=== PATIENT | male | born 1945 | race Hispanic/Latino ===

== ENCOUNTER → 2022-11-17 07:35 | Outpatient (CLI) | payer OTHER, SELFPAY ==
[2022-11-17 09:38] LABS: BUN Creatinine Ratio 23.3 (6-22); Blood Urea Nitrogen 20 mg/dL (9-20); Calcium 8.7 mg/dL (8.4-10.2); Carbon Dioxide 30 mmol/L (22-32); Chloride 105 mmol/L (98-107); Estimated Glomerular Filt Rate > 60 mL/min (>60); Glucose 100 mg/dL (80-110); HEMOLYSIS < 15 (0-50); Sodium 141 mmol/L (137-145)
[2022-11-17 09:47] LABS: Add Manual Diff / Slide Review NO; Basophils Absolute Auto 0 /uL (0-100); Basophils Percent Auto 0.3 % (0-2); Eosinophils Absolute Auto 200 /uL (0-450); Eosinophils Percent Auto 2.6 % (2-4); Hematocrit 41.7 % (41-53); Hemoglobin 14.5 g/dL (13.5-17.5); Lymphocytes Absolute Auto 1600 /uL (1100-4500); Mean Corpuscular HGB Conc 34.8 % (30-36); Mean Corpuscular Hemoglobin 31.5 PG (26-34); Mean Corpuscular Volume 90.7 fL (80-100); Monocytes Absolute Auto 600 /uL (0-900); Monocytes Percent Auto 10.5 % (3-14); Neutrophils Absolute Auto 3700 /uL (1500-7000); Neutrophils Percent Auto 60.6 % (50-75); Platelet Count 163 X10^3/uL (150-400); Red Blood Cell Count 4.59 X10^6/uL (4.5-5.9); Red Cell Distribution Width 13.7 % (11.6-14.8); White Blood Cell Count 6.1 X10^3/uL (4.5-11.0)
[2022-11-18 08:47] LABS: x Labcorp Estim. Avg Glu (eAG) 126 mg/dL (.)
== END ==
PROVIDERS: Family Provider Student in an Organized Health Care Education/Training Program; PCP Student in an Organized Health Care Education/Training Program; Referring Provider Orthopaedic Surgery Orthopaedic Surgery of the Spine; Visit Provider Orthopaedic Surgery Orthopaedic Surgery of the Spine
DX: Z01.818 Encounter for other preprocedural examination (principal); R73.9 Hyperglycemia, unspecified; Z01.812 Encounter for preprocedural laboratory examination
CPT/HCPCS: 36415; 80048; 83036; 85025; 93005

== ENCOUNTER 2023-01-10 06:25 | Inpatient (IN) | payer OTHER, SELFPAY ==
[2022-12-19 10:00] VITALS: BMI 34.4
[2023-01-10] VITALS (15 sets, daily range): BP systolic 121–180; BP diastolic 55–91; PULSE 91–96; RESP 14–96; TEMP 35.9–37.1; O2SAT 90–98; BMI 34.4
--- NOTE | 2023-01-10 | DI.RAD.S_ITS ---
PROCEDURE: XR LUMBAR SPINE 2-3V INDICATIONS: L4-5 L5-S1 TLIF TECHNIQUE: 2 views of the lumbar spine were acquired. COMPARISON: None. FINDINGS: Bones: Fluoroscopic guidance utilized for transverse and interbody fusion at L4 through S1. IMPRESSION: Fluoroscopic guidance. Dictated by: William Rae M.D. on 01/10/2023 at 13:23 Approved by: William Rae M.D. on 01/10/2023 at 13:23
[2023-01-10] MEDS: LACTATED RINGERS 1,000 ML 42 ML IV ×2 (07:17→09:19)
--- NOTE | 2023-01-10 07:48 | PM.PREOP ---
Pre-operative Note COVID-19 Criteria for continued procedure: Expected advancement of disease process, Possibility delay results in more complex future surgery or treatment, Increased loss of function, Continuing or worsening of significant or severe pain, Deterioration of the patient's condition or overall health and Delay expected to result in less-positive ultimate med/surg outcome Interval Note History & Physical reviewed/Exam performed by Physician: Yes Changes to H&P: No
[2023-01-10] MEDS: CEFAZOLIN 2 GM/100 ML PREMIX 100 ML IV ×3 (08:16→23:37)
--- NOTE | 2023-01-10 08:42 | SUR.OPER ---
Prone on spine table, head in foam head support, padded chest and pelvic supports, gel pad at knees, lower legs supported by pillows; nipples, genitalia and toes free of pressure, arms secured on foam padded arm boards at <90 degrees abduction. Tape over blanket at thigh secured to table.
[2023-01-10] MEDS: BUPIVACAINE 0.25% (PF) 60 ML, EPINEPHrine 0.15 MG INJ (09:10)
[2023-01-10] MEDS: BUPIVACAINE LIPOSOME 266 MG/20 ML VIAL INJ (09:11)
--- NOTE | 2023-01-10 11:21 | PM.OP.1 ---
Operative Date/Time/Diagnoses Date of procedure: 01/10/23 Time of procedure: 07:40 Pre-op diagnosis: 1. Lumbar post laminectomy syndrome. 2. Lumbar spinal stenosis with radiculopathy Post-op diagnosis: same Procedure & Clinicians Procedure: 1. L4-5, L5-S1 Postero-lateral and posterior interbody fusion 2. L4-5, L5-S1 interbody cage placement. 3. L4-5, L5-S1 decompressive laminectomy with bilateral facetecomies 4. L4-5, L5-S1 Posterior segmental instrumentation 5. [place] of bone marrow from iliac crest 6. Utilization of microsurgical technique and operating microscope 7. Utilization of robotic assisted navigation Same procedure as scheduled: Yes Indications: Patient has been having chronic back pain and worsening lumbar radiculopathy. Patient failed multiple conservative management with worsening pain weakness and numbness in his lower extremity. Patient has been having difficulty performing activity of daily living. After discussing risks benefits of treatment options, patient elected proceed with surgery. Surgeon: Rocco West Offset Press Operator: Shi Coker Click Yes if Unassisted: No Anesthesia Type: General Operative Notes Closure Type: primary Specimen(s): none sent Prosthetic devices, grafts, tissues, transplants, or devices: Globus CREO MIS screws, Rise cages Applied: catheter Estimated Blood Loss (mL): 100 Blood products transfused: none Procedure in detail: Patient was seen in the preoperative area. Risks and benefits of the surgery was discussed with the patient. Informed consent was obtained from the patient and placed in the chart. Surgical site was marked. Patient was taken to the operative room. General anesthesia was administered. Prophylactic antibiotic was given to the patient less than 30 min before the incision was made. Patient was placed into a prone position on the [place] table. Patient's back was then prepped and draped in the sterile fashion. Time-out was performed at this time. After patient was prepped and draped, patient's PSIS was palpated and marked bilaterally. Small 1 cm incision was made over the PSIS for placement of the reference probes. Two trocar was placed into the PSIS 1 on each side. The reference probe was attached to the trocar of the reference apparatus. At this time the C-arm imaging was used to confirm AP and lateral of L4-L5, L5-S1 vertebrae and merged the C-arm imaging using the [employer] robotic navigation system with the CT of the lumbar spine. After successful merging was completed and confirmed, skin marker was used to bree out the skin incision using the [employer] robotic arm. Bilateral incision was made at this time. Pre templated trajectory was used and guided using the [employer] robotic navigation system for bilateral L4, L5, S1 pedicle screw placement. This was done by using the robotic arm to guide the high-speed bur to make a cortical entry point. Next a drill was placed also using the robotic arm and guided using the navigation system drilling partially through bilateral L4, L5 and S1 pedicles. Next L4, L5, S1 pedicle screws it was pre templated and measured was placed onto the power dedicated truck driver and inserted into the pedicles bilaterally. After all 6 screws were placed C-arm imaging was taken of both AP and lateral to confirm the placement. Excellent placement of the screws were confirmed and a matched precisely with the pre planned screw placement using the navigation system. MARs retractor was inserted using [employer] guidence. Globus MARS retractors was placed inside the incision and docked onto the L4 and L5 lamina. Using microsurgical technique and operating microscope, a L4, L5 laminectomy and L4-5, L5-S1 facetectomy was performed using a [place] rongeur. The laminectomy and facetectomy was performed in order to decompress patient's cauda equina as well as the nerve roots exiting at the L4-5, L5-S1 level. Patient was found have severe lateral recess and neural foramen stenosis which was fully decompressed after the laminectomy facetectomy. More than 75% of the facets were removed during the process of decompression rendering L4-5, L5-S1 level grossly unstable and required a fusion procedure at the same time. The disc space at L4-5, L5-S1 was identified, and a total diskectomy was performed at L4-5, L5-S1 level. The endplates were decorticated using a rasp and shaver. The total diskectomy and decortication was performed at L4-5, L5-S1 level in order to to accomplish a L4-5, L5-S1 fusion. The local bone from the laminectomy and facetectomy was saved for local bone grafting. After the total diskectomy and decortication was completed, Trifecta bone graft material was combined with local bone that was harvested earlier. At this time, a separate skin is incision was made over the iliac crest. A Jamshidi needle was inserted into the iliac crest through a separate skin incision. 5 cc of bone marrow aspiration was obtained through the separate skin incision using a Jamshidi needle from the iliac crest. The bone marrow aspiration was combined with local bone and the Trifecta bone grafting material. The bone grafting material was placed into the L4-5, L5-S1 interbody space along with a expandable cage. The cage was expanded to its maximum height using the torque limiting screwdriver. The disc preparation as well as the cage insertion were also performed under navigation guidance. After the cage was placed, AP and lateral C-arm imaging was taken to confirm placement of the cage and excellent position was confirmed. Globus MARS retractor was inserted and docked onto the L4-5, L5-S1 posterolateral gutter on the right side. Using the power drill, posterior-lateral decortication was performed at L4-5, L5-S1 level until bleeding cortical bone was identified. The remaining bone grafting material was placed into the L4-5, L5-S1 posterior lateral gutter he order to accomplish posterolateral fusion at the L4-5, L5-S1 level. At this time the tulips were attached to the L4, L5, S1 pedicle screw shanks. After measuring the length of the rods, they were inserted into the tulips of the pedicle screws and locked in place using locking caps and torque limiting screwdriver bilaterally. Total 6 caps and 2 titanium rods was used in order to complete the posterior instrumentation construct. After all the hardware was placed, and confirmed with AP and lateral C-arm imaging, the wound was then irrigated with sterile normal saline and packed with Ray-Gold gauze for 3 min to accomplish hemostasis. After the gauze was removed the deep fascia was closed with #1 Vicryl suture. The subcutaneous layer was closed with 2-0 Vicryl. The skin was closed with skin amanda. Patient tolerated the procedure well. There were no complications. Neuro monitoring system was used to monitor patient's neurologic status throughout entire procedure. There was no disturbance of the neural monitoring signals throughout the case. Complications: none Post-operative Condition: stable Disposition: PACU Plan for aftercare: Admit to inpatient hospital
[2023-01-10] MEDS: OXYCODONE/ACETAMINOPHEN 5/325 TABLET 1 TAB PO (12:13)
[2023-01-10] MEDS: hydrOXYzine pamoate 25 MG CAPSULE PO (12:13)
[2023-01-10] MEDS: ACETAMINOPHEN 325 MG TABLET 650 MG PO (13:37)
[2023-01-10] MEDS: OXYCODONE IR 10 MG TABLET PO (13:38)
[2023-01-10] MEDS: LACTATED RINGERS 1,000 ML 125 ML IV (13:42)
--- NOTE | 2023-01-10 14:45 | PT.IIE ---
Current Diagnoses Spondylolisthesis, lumbar region (01/10/23) Postlaminectomy syndrome, not elsewhere classified (01/10/23) Surgery Performed Operation Date: 01/10/23 07:45 Actual Procedures p L4-5, L5-S1 TLIF w. posterior isntrumentation-Ayanna - Rocco West MD Surgical History (Last Updated 12/19/22 @ 09:54 by Halley Medrano, RN) H/O rotator cuff surgery S/P cervical spinal fusion S/P plication of diaphragm Status post left partial knee replacement (~2007) Status post right partial knee replacement (~2014) Medical History (Last Updated 12/19/22 @ 10:34 by Halley Medrano, RN) Carpal tunnel syndrome Diaphragm paralysis Family history of dyslipidemia Family history of GERD History of arthritis History of BPH History of COPD History of hypertension History of low back pain History of muscle spasm History of obesity History of orthopnea Physical Therapy Inpatient Evaluation/Re-Eval M1 PT/OT-IP Prior Functional Status Start: 01/10/23 15:40 Freq: NEEDED Status: Active Protocol: Document 01/10/23 14:45 AB (Rec: 01/10/23 15:58 AB [id number]) Medical Review Prior Functional Status Medical History Reviewed Yes Communication able to make needs known Mobility and Gait pt stated that he is independent with all mobilities and ambulation without AD Social History Household Members spouse Living Arrangements House Number of Floors (Floors) One Floor Number of Stairs To Enter/Railing? 3 steps wide rails to enter and can only use one rail at a time Home Environment High Toilet,Tub/Shower Home Equipment Front Wheel Walker,Shower Seat with Backrest,Hand Held Shower,Grab Bars In Shower M2 PT-IP Current Condition Start: 01/10/23 15:40 Freq: NEEDED Status: Active Protocol: Document 01/10/23 14:45 AB (Rec: 01/10/23 15:58 AB [id number]) Physical Therapy Current Condition Current Condition Evaluation Date 01/10/23 Treatment Diagnosis s/p L4-5, L5S1 TLIF; difficulty in walking Onset Date 01/10/23 M3 PT-IP Subjective Start: 01/10/23 15:40 Freq: NEEDED Status: Active Protocol: Document 01/10/23 14:45 AB (Rec: 01/10/23 15:58 [id number]) Subjective Physical Therapy Visit Type Type Initial Evaluation Visit Start Time 14:45 Visit Stop Time 15:35 Total Visit Minutes 50 Number of DROP FORGE OPERATOR Visits 0 Physical Therapy Visit Comments Patient Comments agreeable to do PT Therapy Pain Assessment Pain When Pain Assessed At Rest Pain Present Pain Present Pain Reported Location back Intensity 5 Scale Used Numeric (0 - 10) Pain Behaviors Guarding Pain Management Techniques Distraction,Modification of Treatment,Re-positioning, Timing of Activity with Medications M4 PT-IP Mobility and Gait Start: 01/10/23 15:40 Freq: NEEDED Status: Active Protocol: Document 01/10/23 14:45 AB (Rec: 01/10/23 15:58 [id number]) PT-Bed Mobility Assessment Rolling Type of Rolling Log Rolling Level of Assist Moderate Assistance Supine to Sit Supine to Sit Moderate Assistance,1 Person Assistance Sit to Supine Sit to Supine Moderate Assistance,Maximum Assistance,1 Person Assistance PT-Transfer Assessment Sit to and From Stand Sit to and from Stand Moderate Assistance,1 Person Assistance,Use of Upper Extremities Equipment Transfer Assistive Device Gait Belt,Front Wheeled Walker Orthotic/Prosthetic Devices or Brace: No Comments Mobility Comments pt supine in bed and sleepy but agreeable to do PT. educated on back precautions and log roll bed moblity. spouse and daughter came in before pt started to mobilize. BP in supine: 156/88 TX: 108. O2 sat at RA: 89-90 O2 sat with O2 on: 94-96% pt completed log roll supine to sit mod A and max cues. able to sit on EOB SBA to CGA. pt c/o dizziness. BP checked: 157/86 TX: 102 O2 sat 94% pt continues to be sleepy; able to follow directions but with delay needing time to respond and requires repeated cues. pt completed sit to stand mod A and cues and was able to take side steps towards HOB mod A using FWW. pt sat back on EOB. stated that he feels ok and wants to walk. BP checked: 152/80. completed sit to stand from EOB mod A. increase retrolean needing mod A for standing balance. ambulated ~ 20 ft using FWW mod A. presents with shuffling gait. pt assisted back to bed. mod A to max A for sit to supine log roll. positioned pt in bed. call light and table placed within reach. spouse agreed to do caregiver training and set up for tomorrow at 1030 am. Gait Assessment Gait Gait Assistance Required: Moderate Assistance Distance (Feet) 20 Able to Maintain Weight Bearing Status Yes During Gait Assistive Devices Assistive Device Gait Belt,Front Wheeled Walker Orthotic/Prosthetic Devices or Brace: No Gait Deviations General Gait Pattern Ataxic,Decreased Stride Length ,Decreased Feet Clearance,Step -to Gait,Wide Based Gait Factors Limiting Gait Function Factors Limiting Gait Function Decreased Activity Tolerance, Decreased Strength,Difficulty Following Directions,Limited Range of Motion,Pain,Poor Balance,Poor Safety Awareness, Respiratory Distress PT-Balance Assessment Sitting Balance and Reactions Static Sitting Balance Ability Good Dynamic Sitting Balance Ability Good Standing Balance and Reactions Static Standing Balance Ability Fair Dynamic Standing Balance Ability Poor Device Used FWW M5 PT-IP Objective Assessments Start: 01/10/23 15:40 Freq: NEEDED Status: Active Protocol: Document 01/10/23 14:45 AB (Rec: 01/10/23 15:58 AB [id number]) Orientation Orientation/Cognition Level of Alertness Alert Orientation Name,Situation Safety Awareness Decreased Safety Awareness Memory Description Short Term Impaired Gross Range of Motion Lower Extremity ROM Assessment Within Functional Limits Strength Comments Strength Comments RLE: 4-/5 LLE: 4/5 Sensation Assessment Sensation Gross Sensation WNL Muscle Tone Muscle Tone WNL Yes M6 PT-IP Treatment Start: 01/10/23 15:40 Freq: NEEDED Status: Active Protocol: Document 01/10/23 14:45 AB (Rec: 01/10/23 15:58 AB [email or web address]) Physical Therapy Treatment Education Education Provided Precautions,Weight Bearing Status,Post-Op Packet,Safety M7 PT-IP Assessment and Plan Start: 01/10/23 15:40 Freq: NEEDED Status: Active Protocol: Document 01/10/23 14:45 AB (Rec: 01/10/23 15:58 AB [email or web address]) PT Summary Assessment and Plan Potential Rehabilitation Potential Fair Status of Condition at Evaluation Evolving Summary Impairments Pain,ROM,Strength,Balance, Coordination,Sensation,Tone, Cognition,Bed Mobility, Transfers,Gait,Activity Tolerance Assessment Summary Pt is a 77 y/o male who underwent L4-5, L5S1 TLIF POD0 . pt lives with spouse and was independent with all mobilities and ambulation without AD prior to sx. Currently, pt requiring mod A to max A for bed mobility and mod A for transfers and ambulation using FWW ~ 20 ft. pt just had surgery this morning and still is slightly lethargic affecting mobility and following directions but will likely progress during hospital stay. pt plans to go home with spouse to assist him. caregiver training set up for tomorrow at 1030am. pt also has 3 steps with 1 rail to get into the house and will be completed prior to d/c. will continue to assess progress. Goals Bed Mobility Goal Standby Assistance Transfer Goal Standby Assistance,Front Wheeled Walker Gait Goal Standby Assistance,Front Wheel Walker Gait Distance 200 Other Goals improve bed mobility, transfers and ambulation using FWW 300ft mod I up/down 3 steps 1 rail SBA Days to Meet Goals 5 Frequency of Treatment Frequency Of Treatment Twice a Day Treatment Plan Physical Therapy Treatment Plan Bed Mobility Training,Transfer Training,Gait Training, Therapeutic Exercise,Balance Retraining,Post Op Education, Discharge Planning,Hot or Cold Pack,Neuromuscular Re-ed, Coordination Retraining,Manual Therapy Precautions Lumbar Precautions Log Roll,No Twisting,Limit Bending,Lifting Restriction of 10 lbs,Gait Belt above Incisional Area Recommendations To Nursing Amount of Assist Needed 1 Person Assist Discharge Recommendations PT Discharge Recommendations Home with Assistance Transportation Needs at Discharge Private Vehicle
[2023-01-10] MEDS: SENNOSIDES 8.6 MG TABLET 17.2 MG PO (20:13)
[2023-01-10] MEDS: DOCUSATE 100 MG CAPSULE PO (20:13)
[2023-01-10] MEDS: OXYCODONE IR 5 MG TABLET PO (23:42)
[2023-01-11] MEDS: OXYCODONE IR 10 MG TABLET PO ×2 (04:02→16:29)
[2023-01-11] MEDS: LACTATED RINGERS 1,000 ML 125 ML IV (05:13)
[2023-01-11 06:54] LABS: Hematocrit 38.4 % (41-53); Hemoglobin 13.1 g/dL (13.5-17.5)
--- NOTE | 2023-01-11 07:42 | P.PN_ITS ---
Subjective Subjective Date Patient Seen: 01/11/23 Time Patient Seen: 07:42 Interval history: Pain is 5/10. Denies fever or chills. No nausea or vomiting. Patient has not yet been out of bed. Patient's is home to assist him. Exam Vital Signs (past 8 hours): Oxygen Delivery Method Nasal Cannula Oxygen Flow Rate 0 Narrative Exam Narrative: 77-year-old male resting comfortably in bed in no apparent distress. Motor fu nctions intact bilateral lower extremities. Const General: cooperative and comfortable Nutritional Appearance: average body habitus Orientation: alert Resp Effort & Inspection: normal respiratory effort and able to speak in complete sentences Objective Labs 01/11/23 05:39 Labs: Laboratory Results - last 24 hr 01/11/23 05:39 Hgb 13.1 L Hct 38.4 L PFSH Medical History Carpal tunnel syndrome Diaphragm paralysis Family history of dyslipidemia Family history of GERD History of arthritis History of BPH History of COPD History of hypertension History of low back pain History of muscle spasm History of obesity History of orthopnea Surgical History H/O rotator cuff surgery S/P cervical spinal fusion S/P plication of diaphragm Status post left partial knee replacement (~2007) Status post right partial knee replacement (~2014) Social History household members: spouse Smoking Status: Former smoker alcohol intake: current Assessment & Plan Post-op Postoperative Procedures: Procedures Operation Date: 01/10/23 07:45 Actual Procedure Side Surgeon p L4-5, L5-S1 TLIF w. posterior isntrumentation-Robot Rocco West MD Postoperative day: 1 Postoperative status: doing well Postoperative plan narrative: Mobilize with physical therapy, limit bending, twisting, lifting Multimodal pain management Discontinue Ibarra catheter Disposition pending physical therapy may discharge home today or tomorrow. Quality VTE Deep Vein Thrombosis/Pulmonary Embolism Present on Admission: No
[2023-01-11 08:00] VITALS: BP 118/65; PULSE 88; RESP 18; TEMP 36.7; O2SAT 92
[2023-01-11 08:10] VITALS: BP 118/79; PULSE 127; RESP 19; TEMP 37.8; O2SAT 93
[2023-01-11 08:40] VITALS: BP 118/65; PULSE 88
[2023-01-11] MEDS: ATORVASTATIN 20 MG TABLET 40 MG PO (08:40)
[2023-01-11] MEDS: DOCUSATE 100 MG CAPSULE PO ×2 (08:40→20:13)
[2023-01-11] MEDS: LOSARTAN 50 MG TABLET PO (08:40)
[2023-01-11 08:46] LABS: Erythrocyte Sedimentation Rate 9 MM/HR (0-15)
[2023-01-11] MEDS: OXYCODONE IR 5 MG TABLET PO (10:21)
--- NOTE | 2023-01-11 10:32 | CM.DANOTE ---
Initial DCP Assessment Note Pt is a 77 yo male, resident of [place], now POD#1 from : L4-5, L5-S1 TLIF w. posterior isntrumentation-Robot Rocco West MD PCP: Sarika Del oTro Payer: [facility] Reviewed chart, pt discussed in multidisciplinary rounds this morning. Therapy has cleared pt for return home w/family to assist and pt has planned for home Met w/patient to introduce role. Patient anticipates discharging home w/spouse, says he would go to a SNF if recommended No barriers identified at this time to patient's safe discharge home w/family to assist based on therapy recommendations and assist available at home; close outpatient f/u recommended. NICK Lam Discharge Planning/Care Management CM Discharge Assessment Start: 01/11/23 10:29 Freq: Status: Active Protocol: Document 01/11/23 10:29 [email or web address] (Rec: 01/11/23 10:32 [id number]) Discharge Planning Assessment Assigned Spindle Carver [place] DPOA/Assigned Designee Name Awa Acosta, spouse Contact Information [phone] Advance Directives? Yes Advance Directives on File Yes History Provided By Patient,Medical Record Prior Living Arrangements House Household Members spouse Type of transporation used prior to Drives own vehicle admit Independent with ADL's Yes Is patient alert and oriented? Yes Comment Poor activity tolerance Comment Home w/spouse to assist Barriers to Discharge No Comment Cg training, three stairs to enter Discharge Plan Home Transportation Arrangement Spouse Referrals Initiated None needed Whiteboard Updated in Patient Room with Yes name and ext. # of Spindle Carver
--- NOTE | 2023-01-11 10:57 | PM.DS.1 ---
History of Present Illness History of Present Illness Date Patient Seen: 01/11/23 Time Patient Seen: 07:42 Chief complaint: INPT Narrative: See progress note Discharge Providers Provider Date of admission: 01/10/23 06:25 Discharge Date: 01/11/23 Primary care physician: Sarika Del Toro MD Consults: 01/10/23 12:43 Consult to Occupational Therapy Evaluate & Treat Comment: Physician Instructions: Evaluate and treat Consult to Physical Therapy Evaluate & Treat Comment: Physician Instructions: Evaluate and Treat Discharge provider: Yovanny Cutler PA-C Summary Hospital Course Discharge Diagnosis: 1. Lumbar post laminectomy syndrome. 2. Lumbar spinal stenosis with radiculopathy Hospital Course: ?1. L4-5, L5-S1 Postero-lateral and posterior interbody fusion 2. L4-5, L5-S1 interbody cage placement. 3. L4-5, L5-S1 decompressive laminectomy with bilateral facetecomies 4. L4-5, L5-S1 Posterior segmental instrumentation 5. Enders of bone marrow from iliac crest 6. Utilization of microsurgical technique and operating microscope 7. Utilization of robotic assisted navigation Same procedure as scheduled: Yes Indications: Patient has been having chronic back pain and worsening lumbar radiculopathy. Patient failed multiple conservative management with worsening pain weakness and numbness in his lower extremity.? Patient has been having difficulty performing activity of daily living.? After discussing risks benefits of treatment options, patient elected proceed with surgery. Surgeon: Rocco West Orthotist/Prosthetist: Shi Coker Click Yes if Unassisted: No Anesthesia Type: General Operative Notes Closure Type: primary Specimen(s): none sent Prosthetic devices, grafts, tissues, transplants, or devices: Globus CREO MIS screws, Rise cages Applied: catheter Estimated Blood Loss (mL): 100 Blood products transfused: none Patient admitted to the hospital for the above-mentioned procedure. Patient consented to the same. Patient underwent lumbar fusion January 10, 2023. Patient back in his room recovering well and is in stable condition. Patient worked with physical therapy. Patient is stable and ready for discharge. Patient will be discharged home today in stable condition. Status at Discharge Cognitive/behavioral status at discharge: at baseline, oriented Functional status at discharge: uses cane/walker Overall status at discharge: patient is progressing back to baseline Exam Vital Signs (past 8 hours): - 01/11/23 08:00 01/11/23 08:40 Temperature 98.1 F Pulse Rate 88 88 Respiratory Rate 18 Blood Pressure 118/65 118/65 Pulse Oximetry 92 Oxygen Delivery Method Nasal Cannula Oxygen Flow Rate 0 Narrative Exam Narrative: See progress note Objective Labs 01/11/23 05:39 Labs: Laboratory Results - last 24 hr 01/11/23 01/11/23 05:39 05:39 Hgb 13.1 L Hct 38.4 L ESR 9 PFSH Medical History Carpal tunnel syndrome Diaphragm paralysis Family history of dyslipidemia Family history of GERD History of arthritis History of BPH History of COPD History of hypertension History of low back pain History of muscle spasm History of obesity History of orthopnea Surgical History H/O rotator cuff surgery S/P cervical spinal fusion S/P plication of diaphragm Status post left partial knee replacement (~2007) Status post right partial knee replacement (~2014) Social History household members: spouse Smoking Status: Former smoker alcohol intake: current Discharge Assessment & Plan Assessment and Plan Assessment: Patient progressing as expected status post lumbar fusion Plan of Treatment: Discharge home today in stable condition Discharge Plan Discharge Plan Patient Disposition: Home Discharge orders & Medications Prescriptions: New acetaminophen 325 mg Tablet 650 mg PO Q6H PRN (Reason: Fever/Mild Pain (1-3)) Qty: 60 0RF oxycodone 5 mg Tablet 5 mg PO Q4HR PRN (Reason: Pain, Moderate (4-6)) Qty: 40 0RF hydroxyzine pamoate 25 mg Capsule 25 mg PO Q4HR PRN (Reason: Nausea And Vomiting) Qty: 20 0RF Continued losartan 50 MG tablet 50 mg PO QDAY Qty: 0 atorvastatin 40 MG tablet 40 mg PO Q DAY Qty: 0 Discontinued ibuprofen [Advil] 200 MG tablet 400 mg PO PRN PRN (Reason: pain) Qty: 0 Follow up/Referrals: Sarika Del Toro MD [Primary Care Provider] - Rocco West MD [Physician] - As previously scheduled (Follow up with Dr West on 01/23/2023 @ 2:30 pm at [facility] office in [place].) Diet/Activity/Treatments Diet: Diet as Tolerated Activity: No deep bending or twisting at the waist. No lifting more than 10 pounds. Cold/Heat Therapy: Heating pad to low back as needed for pain. Skin/Wound/Dressing Care Report to your healthcare provider any signs of infection, such as:: chills, fever, night sweats, unusual drainage and unusual redness Dressing: May shower. Keep dressing as dry as possible. If dressing becomes wet or dirty, remove and replace with clean, dry gauze. No bathing or otherwise soaking incisions. Do not apply any creams, lotions, or ointments to incisions. Visit Report/Discharge Packet Instructions: DI for Prescription Opioid Use, DI for Transforaminal Lumbar Interbody Fusion Stand Alone Forms: Patient Portal/API, Stroke Signs & Symptoms, Surgery Discharge Discharge Data Primary Care Provider: Sarika Del Toro VTE Deep Vein Thrombosis/Pulmonary Embolism Present on Admission: No
--- NOTE | 2023-01-11 11:02 | PT.IPTN ---
Current Diagnoses Spondylolisthesis, lumbar region (01/10/23) Postlaminectomy syndrome, not elsewhere classified (01/10/23) Surgery Performed Operation Date: 01/10/23 07:45 Actual Procedures p L4-5, L5-S1 TLIF w. posterior isntrumentation-Robot - Rocco West MD Physical Therapy Treatment Note M2 PT-IP Current Condition Start: 01/10/23 15:40 Freq: NEEDED Status: Active Protocol: Document 01/10/23 14:45 AB (Rec: 01/10/23 15:58 AB [id number]) Physical Therapy Current Condition Current Condition Evaluation Date 01/10/23 Treatment Diagnosis s/p L4-5, L5S1 TLIF; difficulty in walking Onset Date 01/10/23 M3 PT-IP Subjective Start: 01/10/23 15:40 Freq: NEEDED Status: Active Protocol: Document 01/11/23 12:10 TS (Rec: 01/11/23 12:29 TS [id number]) Subjective Physical Therapy Visit Type Type Treatment Note Visit Start Time 11:02 Visit Stop Time 11:42 Total Visit Minutes 40 Number of CITY COLLECTOR Visits 1 Physical Therapy Visit Comments Patient Comments Pt found resting in bed, spouse in room, reports pain is high but is agreeable to PT . Pt states he would like to go to a SNF if only for a couple of days. Therapy Pain Assessment Pain When Pain Assessed At Rest Pain Present Pain Present Pain Reported M4 PT-IP Mobility and Gait Start: 01/10/23 15:40 Freq: NEEDED Status: Active Protocol: Document 01/11/23 12:10 TS (Rec: 01/11/23 12:29 TS [id number]) PT-Bed Mobility Assessment Rolling Type of Rolling Log Rolling Level of Assist Standby Assistance Supine to Sit Supine to Sit Minimal Assistance,1 Person Assistance Sit to Supine Sit to Supine Minimal Assistance,1 Person Assistance Scooting Scooting to Edge of Bed Contact Guard Assistance PT-Transfer Assessment Sit to and From Stand Sit to and from Stand Contact Guard Assistance,1 Person Assistance,Use of Upper Extremities Equipment Transfer Assistive Device Gait Belt,Front Wheeled Walker Orthotic/Prosthetic Devices or Brace: No Comments Mobility Comments Pt found resting in bed, agreeable to PT, spouse present for caregiver training . Pt recalled 3/3 spinal precautions prior to mobility. Pt performed logroll SBA with cues for fully on side. Supine to sit Faith from spouse , cues for provided to spouse and pt on sequencing. He performed sit to stand CGA w/ FWW, instructed spouse in proper attorney law clerk on gait belt. He ambulated ~50' CGA w/ w/c trailing, he requested to sit in w/c for rest break. Pt was brought to stairs, he performed sit to stand from w/ c CGA w/cues for BUE support pushing from arms of chair. He performed stairs x3 CGA from spouse with B handrail assist, provided cues for step sequencing and proper stair technique to caregiver. Pt ambulated back to ~100' CGA w/ FWW and slow emerging step thru gait. Sit to supine Faith from spouse for LE assist into bed, cues for provided for sequencing. He was left in bed with call light nearby, spouse in room, RN notified. Gait Assessment Gait Gait Assistance Required: Contact Guard Assist,1 Person Assist Distance (Feet) 150 Able to Maintain Weight Bearing Status Yes During Gait Assistive Devices Assistive Device Gait Belt,Front Wheeled Walker Orthotic/Prosthetic Devices or Brace: No Gait Deviations General Gait Pattern Ataxic,Decreased Stride Length ,Decreased Feet Clearance,Wide Based Gait Factors Limiting Gait Function Factors Limiting Gait Function Decreased Activity Tolerance, Decreased Strength,Difficulty Following Directions,Limited Range of Motion,Pain,Poor Balance,Poor Safety Awareness, Respiratory Distress Comments Gait Comments See mobility comments. Stair Climbing Assessment Evaluation Level of Assist On Stairs Contact Guard Assistance,1 Person Assistance Devices Stair Climbing Assistive Devices Left Railing,Right Railing Technique/Endurance Stair Climbing Direction Ascend and Descend Stair Climbing Technique Step to Step Number of Steps Climbed 3 Comments Stair Climbing Comments See mobility comments PT-Balance Assessment Sitting Balance and Reactions Static Sitting Balance Ability Normal Dynamic Sitting Balance Ability Good Standing Balance and Reactions Static Standing Balance Ability Good Dynamic Standing Balance Ability Fair Device Used FWW M5 PT-IP Objective Assessments Start: 01/10/23 15:40 Freq: NEEDED Status: Active Protocol: Document 01/10/23 14:45 AB (Rec: 01/10/23 15:58 AB [id number]) Orientation Orientation/Cognition Level of Alertness Alert Orientation Name,Situation Safety Awareness Decreased Safety Awareness Memory Description Short Term Impaired Gross Range of Motion Lower Extremity ROM Assessment Within Functional Limits Strength Comments Strength Comments RLE: 4-/5 LLE: 4/5 Sensation Assessment Sensation Gross Sensation WNL Muscle Tone Muscle Tone WNL Yes M6 PT-IP Treatment Start: 01/10/23 15:40 Freq: NEEDED Status: Active Protocol: Document 01/11/23 12:10 TS (Rec: 01/11/23 12:29 TS [id number]) Physical Therapy Treatment Education Education Provided Precautions,Weight Bearing Status,Post-Op Packet,Safety M7 PT-IP Assessment and Plan Start: 01/10/23 15:40 Freq: NEEDED Status: Active Protocol: Document 01/11/23 12:10 TS (Rec: 01/11/23 12:29 TS [id number]) PT Summary Assessment and Plan Potential Rehabilitation Potential Good Summary Impairments Pain,ROM,Strength,Balance, Coordination,Sensation,Tone, Cognition,Bed Mobility, Transfers,Gait,Activity Tolerance Progress Towards Goals Progressing Toward Goals Assessment Summary Pt is making good progress with his mobility this morning . He progressed his bed mobility to Faith/CGA. He demonstrated good carryover of logroll technique and recalled 3/3 spinal precautions. He progressed his gait to ~150' CGA froms spouse, he did require a rest break after intial 50' with FWW. He progressed his stairs to x3 w/CGA and B handrail assist, pt had no buckling or LOB. Spouse was educated on and she performed bed mobility , gait and stair training with Pt. PT is recommending return home w/assist from spouse. Pt would like to go to rehab for a few days before returning home. Goals Bed Mobility Goal Standby Assistance Transfer Goal Standby Assistance,Front Wheeled Walker Gait Goal Standby Assistance,Front Wheel Walker Gait Distance 200 Other Goals improve bed mobility, transfers and ambulation using FWW 300ft mod I up/down 3 steps 1 rail SBA Days to Meet Goals 5 Frequency of Treatment Frequency Of Treatment Twice a Day Treatment Plan Physical Therapy Treatment Plan Bed Mobility Training,Transfer Training,Gait Training, Therapeutic Exercise,Balance Retraining,Post Op Education, Discharge Planning,Hot or Cold Pack,Neuromuscular Re-ed, Coordination Retraining,Manual Therapy Precautions Lumbar Precautions Log Roll,No Twisting,Limit Bending,Lifting Restriction of 10 lbs,Gait Belt above Incisional Area Recommendations To Nursing Amount of Assist Needed 1 Person Assist Discharge Recommendations PT Discharge Recommendations Home with Assistance Other Discharge Recommendations Pt would like to go to SNF Transportation Needs at Discharge Private Vehicle
[2023-01-11] MEDS: hydrOXYzine pamoate 25 MG CAPSULE PO ×2 (11:49→16:29)
[2023-01-11] MEDS: HYDROMORPHONE 0.5 MG INJ IV ×3 (11:53→20:14)
--- NOTE | 2023-01-11 12:04 | OT.IP.EVAL ---
Current Diagnoses Spondylolisthesis, lumbar region (01/10/23) Postlaminectomy syndrome, not elsewhere classified (01/10/23) Surgery Performed Operation Date: 01/10/23 07:45 Actual Procedures p L4-5, L5-S1 TLIF w. posterior isntrumentation-Robot - Rocco West MD Past Medical History (Last Reviewed 01/11/23 @ 10:59 by Yovanny Cutler PA-C) Carpal tunnel syndrome Diaphragm paralysis Family history of dyslipidemia Family history of GERD History of arthritis History of BPH History of COPD History of hypertension History of low back pain History of muscle spasm History of obesity History of orthopnea Surgical History (Last Reviewed 01/11/23 @ 10:59 by Yovanny Cutler PA-C) H/O rotator cuff surgery S/P cervical spinal fusion S/P plication of diaphragm Status post left partial knee replacement (~2007) Status post right partial knee replacement (~2014) Occupational Therapy Inpatient Evaluation/Re-Eval M1 PT/OT-IP Prior Functional Status Start: 01/11/23 12:05 Freq: NEEDED Status: Active Protocol: Document 01/11/23 08:54 [facility]3] (Rec: 01/11/23 12:18 [facility]3] [id number]) Medical Review Prior Functional Status Medical History Reviewed Yes Communication able to make needs known Mobility and Gait pt stated that he is independent with all mobilities and ambulation without AD Activities of Daily Living and IADL's Pt states he was able to do his ADL and IADL needs. Social History Household Members spouse Living Arrangements House Number of Floors (Floors) One Floor Number of Stairs To Enter/Railing? 3 steps with wide rails. Home Environment High Toilet,Tub/Shower,Bidet Home Equipment Front Wheel Walker,Shower Seat with Backrest,Hand Held Shower,Grab Bars In Shower Additional Social History Comment Pt has a supportive to be able to assist him at home. M2 OT-IP Current Condition Start: 01/11/23 12:05 Freq: Status: Active Protocol: Document 01/11/23 08:54 [facility]3] (Rec: 01/11/23 12:18 [facility]3] [id number]) Occupational Therapy Current Condition Current Condition Evaluation Date 01/11/23 Treatment Diagnosis S/P L4-5 , L5-S1 TLIF Diagnosis Onset Date 01/10/23 Post Operative Precautions Lumbar Precautions Log Roll,No Twisting,Limit Bending,Lifting Restriction of 10 lbs,Gait Belt above Incisional Area M3 OT- IP Subjective and Pain Start: 01/11/23 12:05 Freq: Status: Active Protocol: Document 01/11/23 08:54 [facility]3] (Rec: 01/11/23 12:18 [facility]3] [id number]) OT- Subjective Occupational Therapy Visit Type Type Initial Evaluation Visit Start Time 08:54 Visit Stop Time 12:04 Total Visit Minutes 29 Notes Pt seen for split treatment of [id number] and [id number]. Occupational Therapy Visit Comments Patient Comments Pt's present. Patient/Caregiver Goals Pt states he is open to going to skilled rehab if needed. OT Pain Assessment Pain When Pain Assessed During Mobility Pain Present Pain Present Pain Reported Location back Intensity 9 Scale Used Numeric (0 - 10) M4 OT- IP ADL's Start: 01/11/23 12:05 Freq: Status: Active Protocol: Document 01/11/23 08:54 [facility]3] (Rec: 01/11/23 12:18 [facility]3] [id number]) OT [id number] Comments OT Self-Feeding Comments Pt states he has history of swallowing issues and needing to get while sitting straight upright. Pt's feels that he eats too fast. Suggested pt ask PCP to see RUBY RAILS DEVELOPER for swallowing issues. Pt insists that he is fine. OT ADL-Grooming Comments OT Grooming Comments Not performed. OT ADL-Oral Care Comments Oral Care Comments Not performed. OT ADL-Toileting Comments OT Toileting Comments Not performed. OT ADL-Bathing Comments OT Bathing Comments Suggested may want to try to shower tomorrow prior to going home and that a tub bench would make it easier to get into his shower. M5 OT- IP IADL's Start: 01/11/23 12:05 Freq: Status: Active Protocol: Document 01/11/23 08:54 [facility]3] (Rec: 01/11/23 12:18 [facility]3] [id number]) OT-Instrumental Activities of Daily Living Deficits IADL Deficits Identified Deficits Home Safety Awareness Awareness of Need for Assistance at Home Good Awareness Home Safety Comments Pt a bit groggy and will benefit from his to provide assist as needed. Meal Preparation Meal Preparation Caregiver Provides Assist Farm Mortgage Agent Farm Mortgage Agent Caregiver Provides Assist M6 OT- IP Functional Cognition Start: 01/11/23 12:05 Freq: Status: Active Protocol: Document 01/11/23 08:54 [facility]3] (Rec: 01/11/23 12:18 [facility]3] [id number]) Cognitive Factors Limiting Selfcare Function Cognitive Ability Level of Alertness Alert,Drowsy Attention Span Ability Capable of Focused Attention, Capable of Sustained Attention Safety Awareness Decreased Ability to Apply Precautions,Underestimates Need for Assistance Cognitive Comments Cognitive Assessment Comments Pt is a bit groggy and did not remember being seen by PT yesterday. Pt needing reminders to incorporate his back precautions for ADl and mobility needs. OT- Vision and Hearing OT- Hearing Assessment OT- Hearing Assessment WFL OT- Vision Assessment Visual Acuity Glasses All The Time Visual Attentiveness WFL Occular Pursuits WFL M7 OT- IP Mobility and Balance Start: 01/11/23 12:05 Freq: Status: Active Protocol: Document 01/11/23 08:54 [facility]3] (Rec: 01/11/23 12:18 [facility]3] [id number]) OT- Bed Mobility Assessment Supine to Sit Supine to Sit Assist Standby Assistance Sit to Supine Sit to Supine Assist Standby Assistance OT-Transfer Assessment Comments Mobility Comments Pt needing cues to follow his back precautions for log rolling but able to get into and out of the bed on his own. OT- Gait Assessment Comments Gait Ability Comments Pt in too much pain to get up from the bed at this time. OT- Balance Assessment Sitting Balance and Reactions Static Sitting Balance Ability Normal M8 OT- IP Objective Assessments Start: 01/11/23 12:05 Freq: Status: Active Protocol: Document 01/11/23 08:54 [facility]3] (Rec: 01/11/23 12:18 [facility]3] [id number]) OT-Muscle Tone Assessment Muscle Tone WNL Yes M9 OT- IP Assessment and Plan Start: 01/11/23 12:05 Freq: Status: Active Protocol: Document 01/11/23 08:54 [facility]3] (Rec: 01/11/23 12:18 [facility]3] [id number]) OT Summary Assessment and Plan Potential Rehabilitation Potential Good Analytic Complexity at Evaluation Low Summary OT Impairments Pain,Balance,Dressing, Toileting,Bathing Progress Towards Goals Slow Progress due to Pain Assessment Summary Pt having 9/10 pain at this time and in too much pain to get up for OT as just finishing caregiver training with CAR DRIVER. Pt was able to get to the edge of the bed in preparation for eating with SBA. Pt mentioned that he has history of swallowing issues and suggested pt go see RUBY RAILS DEVELOPER. Pt's states that he eats too fast and needing to slow down. Pt looking to go home with assist when medically stable. Goals Self-Feeding Goal Independent Grooming Goal Independent Dressing Goal Independent Toileting Goal Independent Bathing Goal Standby Assistance Toilet Transfer Goal Independent Shower Transfer Goal Standby Assistance Patient/Caregiver Education Goal Caregiver Independent Assisting Patient Days to Meet Goals 5 Frequency of Treatment Frequency Of Treatment Once a Day Treatment Plan OT Treatment Plan ADL Training,Functional Mobility,Patient/Family Education,Discharge Planning Other Treatment Recommendations and Next shower Treatment Focus Discharge Recommendations OT Discharge Recommendations Home with Assistance Home Equipment Needs tub bench? Transportation Needs at Discharge Private Vehicle
--- NOTE | 2023-01-11 15:06 | PT-IP ANOTE ---
Pt reports he is having a lot of pain at the moment and would like to rest for the day. PT will check back in tomorrow morning.
[2023-01-11 18:00] VITALS: BP 127/76; PULSE 118; RESP 18; O2SAT 91
[2023-01-11] MEDS: SENNOSIDES 8.6 MG TABLET 17.2 MG PO (20:13)
[2023-01-12] VITALS: BP 151/81; PULSE 123; RESP 20; TEMP 37.3; O2SAT 93
[2023-01-12] MEDS: HYDROMORPHONE 0.5 MG INJ IV (01:53)
[2023-01-12] MEDS: hydrOXYzine pamoate 25 MG CAPSULE PO (01:54)
[2023-01-12 06:00] VITALS: BP 136/78; PULSE 102; RESP 19; TEMP 37.2; O2SAT 93
[2023-01-12] MEDS: OXYCODONE IR 10 MG TABLET PO (06:17)
[2023-01-12 08:00] VITALS: BP 113/70; PULSE 98; RESP 18; O2SAT 98
[2023-01-12] MEDS: DOCUSATE 100 MG CAPSULE PO (08:21)
[2023-01-12] MEDS: ATORVASTATIN 20 MG TABLET 40 MG PO (08:21)
[2023-01-12] MEDS: LOSARTAN 50 MG TABLET PO (08:22)
--- NOTE | 2023-01-12 08:45 | PT.IPTN ---
Current Diagnoses Spondylolisthesis, lumbar region (01/10/23) Postlaminectomy syndrome, not elsewhere classified (01/10/23) Surgery Performed Operation Date: 01/10/23 07:45 Actual Procedures p L4-5, L5-S1 TLIF w. posterior isntrumentation-Robot - Rocco West MD Physical Therapy Treatment Note M2 PT-IP Current Condition Start: 01/10/23 15:40 Freq: NEEDED Status: Active Protocol: Document 01/10/23 14:45 AB (Rec: 01/10/23 15:58 AB [id number]) Physical Therapy Current Condition Current Condition Evaluation Date 01/10/23 Treatment Diagnosis s/p L4-5, L5S1 TLIF; difficulty in walking Onset Date 01/10/23 M3 PT-IP Subjective Start: 01/10/23 15:40 Freq: NEEDED Status: Active Protocol: Document 01/12/23 09:19 TS (Rec: 01/12/23 10:04 TS [id number]) Subjective Physical Therapy Visit Type Type Treatment Note Visit Start Time 08:45 Visit Stop Time 09:15 Total Visit Minutes 30 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 Therapy Pain Assessment Pain When Pain Assessed At Rest Pain Present Pain Present Pain Reported M4 PT-IP Mobility and Gait Start: 01/10/23 15:40 Freq: NEEDED Status: Active Protocol: Document 01/12/23 09:19 TS (Rec: 01/12/23 10:04 TS [id number]) PT-Transfer Assessment Sit to and From Stand Sit to and from Stand Moderate Assistance,1 Person Assistance,Use of Upper Extremities Equipment Transfer Assistive Device Gait Belt,Front Wheeled Walker Orthotic/Prosthetic Devices or Brace: No Comments Mobility Comments Pt found resting in chair on 1L of o2, SPo2 95%. Pt recalled 1/3 spinal precautions(no twisting) prior to mobility. o2 removed for mobility. He performed sit to stand from chair ModA, knees are feeling weak and having difficulty fully coming into standing, pt required cues for weight forward and BUE support pushing from arms of chair. He ambulated to restroom ~10' CGA w/FWW and step to gait, pt c/o increasing pain in R hip, some lsight dizziness and thermal changes. After use of toilet he ambulated in room ~50'CGA w /FWW and slow step to gait, pt denied dizziness and decreased sweating, pain decreasing. Stand to sit in chair CGA with cues for UEs on arms of chair for slow eccentric control. Pt continues to recall 1/3 spinal precautions(no twisting). Gait Assessment Gait Gait Assistance Required: Contact Guard Assist,1 Person Assist Distance (Feet) 60 Able to Maintain Weight Bearing Status Yes During Gait Assistive Devices Assistive Device Gait Belt,Front Wheeled Walker Orthotic/Prosthetic Devices or Brace: No Gait Deviations General Gait Pattern Ataxic,Decreased Stride Length ,Decreased Feet Clearance,Wide Based Gait Factors Limiting Gait Function Factors Limiting Gait Function Decreased Activity Tolerance, Decreased Strength,Difficulty Following Directions,Limited Range of Motion,Pain,Poor Balance,Poor Safety Awareness, Respiratory Distress Comments Gait Comments See mobility comments. Stair Climbing Assessment Comments Stair Climbing Comments Did not attempt this session. PT-Balance Assessment Sitting Balance and Reactions Static Sitting Balance Ability Normal Dynamic Sitting Balance Ability Good Standing Balance and Reactions Static Standing Balance Ability Good Dynamic Standing Balance Ability Fair Device Used FWW M5 PT-IP Objective Assessments Start: 01/10/23 15:40 Freq: NEEDED Status: Active Protocol: Document 01/10/23 14:45 AB (Rec: 01/10/23 15:58 AB [id number]) Orientation Orientation/Cognition Level of Alertness Alert Orientation Name,Situation Safety Awareness Decreased Safety Awareness Memory Description Short Term Impaired Gross Range of Motion Lower Extremity ROM Assessment Within Functional Limits Strength Comments Strength Comments RLE: 4-/5 LLE: 4/5 Sensation Assessment Sensation Gross Sensation WNL Muscle Tone Muscle Tone WNL Yes M6 PT-IP Treatment Start: 01/10/23 15:40 Freq: NEEDED Status: Active Protocol: Document 01/12/23 09:19 TS (Rec: 01/12/23 10:04 TS [id number]) Physical Therapy Treatment Education Education Provided Precautions,Weight Bearing Status,Post-Op Packet,Safety M7 PT-IP Assessment and Plan Start: 01/10/23 15:40 Freq: NEEDED Status: Active Protocol: Document 01/12/23 09:19 TS (Rec: 01/12/23 10:04 TS [id number]) PT Summary Assessment and Plan Potential Rehabilitation Potential Good Summary Impairments Pain,ROM,Strength,Balance, Coordination,Sensation,Tone, Cognition,Bed Mobility, Transfers,Gait,Activity Tolerance Progress Towards Goals Slow Progress due to Pain Assessment Summary Pt is making slow progress this session due to his pain. He required ModA for sit to stand from chair x2 due to weakness in his LEs, pain and the lower surface of the chair . He continued to ambulate with a slow step to gait w/FWW CGA, has no buckling or LOB. Pt did report some dizziness initially with mobility and some thermal changes(sweating) , dizziness and thermal changes decreased with increased time with gait. He was on rest @1L of o2 prior to mobility, Spo2 95%. He performed mobility on RA, Spo2 93-94%, denied any SOB. PT continues to recommend home with assist. Pt would like to go to rehab and could benefit to improve his strength before he goes home. Goals Bed Mobility Goal Standby Assistance Transfer Goal Standby Assistance,Front Wheeled Walker Gait Goal Standby Assistance,Front Wheel Walker Gait Distance 200 Other Goals improve bed mobility, transfers and ambulation using FWW 300ft mod I up/down 3 steps 1 rail SBA Days to Meet Goals 5 Frequency of Treatment Frequency Of Treatment Twice a Day Treatment Plan Physical Therapy Treatment Plan Bed Mobility Training,Transfer Training,Gait Training, Therapeutic Exercise,Balance Retraining,Post Op Education, Discharge Planning,Hot or Cold Pack,Neuromuscular Re-ed, Coordination Retraining,Manual Therapy Precautions Lumbar Precautions Log Roll,No Twisting,Limit Bending,Lifting Restriction of 10 lbs,Gait Belt above Incisional Area Recommendations To Nursing Amount of Assist Needed 1 Person Assist Discharge Recommendations PT Discharge Recommendations Home with Assistance Other Discharge Recommendations Pt would like to go to SNF Transportation Needs at Discharge Private Vehicle
[2023-01-12] MEDS: ONDANSETRON 4 MG ODT SL (10:20)
--- NOTE | 2023-01-12 10:37 | OT.IP.TRT ---
Current Diagnoses Spondylolisthesis, lumbar region (01/10/23) Postlaminectomy syndrome, not elsewhere classified (01/10/23) Surgery Performed Operation Date: 01/10/23 07:45 Actual Procedures p L4-5, L5-S1 TLIF w. posterior isntrumentation-Robot - Rocco West MD Occupational Therapy Treatment Note M2 OT-IP Current Condition Start: 01/11/23 12:05 Freq: Status: Active Protocol: Document 01/11/23 08:54 [facility] (Rec: 01/11/23 12:18 [facility] [id number]) Occupational Therapy Current Condition Current Condition Evaluation Date 01/11/23 Treatment Diagnosis S/P L4-5 , L5-S1 TLIF Diagnosis Onset Date 01/10/23 Post Operative Precautions Lumbar Precautions Log Roll,No Twisting,Limit Bending,Lifting Restriction of 10 lbs,Gait Belt above Incisional Area M3 OT- IP Subjective and Pain Start: 01/11/23 12:05 Freq: Status: Active Protocol: Document 01/12/23 10:39 [facility] (Rec: 01/12/23 10:46 [facility] [id number]) OT- Subjective Occupational Therapy Visit Type Type Treatment Note Visit Start Time 10:23 Visit Stop Time 10:37 Total Visit Minutes 14 Occupational Therapy Visit Comments Patient Comments Pt dozing off while in the recliner and very groggy. Patient/Caregiver Goals To get better. OT Pain Assessment Pain When Pain Assessed At Rest Pain Present Pain Present Denied Pain M6 OT- IP Functional Cognition Start: 01/11/23 12:05 Freq: Status: Active Protocol: Document 01/12/23 10:39 [facility] (Rec: 01/12/23 10:46 [facility] [id number]) Cognitive Factors Limiting Selfcare Function Cognitive Ability Level of Alertness Confusional State,Drowsy Patient Orientation Name Attention Span Ability Capable of Focused Attention, Unable to Sustain Attention Ability to Follow Commands Able to Follow One Step Commands with Increased Time, Able to Follow One Step Commands with Repetition Cognitive Comments Cognitive Assessment Comments Pt very groggy, sleepy and having difficulty to follow directions and recall his back precautions. Pt able to states feels that his cognitive issues now are from having surgery. Pt's nurse aware and to be holding his pain meds for now. Pt's BP sitting in the recliner 95/53, 90/53 and with his legs up 107/55. Nursing notified and able to place the call light in front of him. M8 OT- IP Objective Assessments Start: 01/11/23 12:05 Freq: Status: Active Protocol: Document 01/11/23 08:54 [facility] (Rec: 01/11/23 12:18 [facility] [id number]) OT-Muscle Tone Assessment Muscle Tone WNL Yes M9 OT- IP Assessment and Plan Start: 01/11/23 12:05 Freq: Status: Active Protocol: Document 01/12/23 10:39 [facility] (Rec: 01/12/23 10:46 [facility] [id number]) OT Summary Assessment and Plan Potential Rehabilitation Potential Good Analytic Complexity at Evaluation Low Summary OT Impairments Pain,Balance,Dressing, Toileting,Bathing Progress Towards Goals Slow Progress due to Medical Issues Assessment Summary Pt very groggy and having difficulty to stay awake. Nursing feels that pt has had too much pain meds and now holding his meds for now until pt able to clear up more. Hopeful that pt will be more medically stable and go home with his to assist. Goals Self-Feeding Goal Independent Grooming Goal Independent Dressing Goal Independent Toileting Goal Independent Bathing Goal Standby Assistance Toilet Transfer Goal Independent Shower Transfer Goal Standby Assistance Patient/Caregiver Education Goal Caregiver Independent Assisting Patient Days to Meet Goals 4 Frequency of Treatment Frequency Of Treatment Once a Day Treatment Plan OT Treatment Plan ADL Training,Functional Mobility,Patient/Family Education,Discharge Planning Discharge Recommendations OT Discharge Recommendations Home with Assistance Home Equipment Needs tub bench? Transportation Needs at Discharge Private Vehicle
--- NOTE | 2023-01-12 10:41 | PC.NURSE ---
Addendum entered by Adalgisa Britt R.N. 01/12/23 13:58: Patients blood pressure down to 82 systolic. Called and got an order for NS bolus, this is infusing now. Patient blood pressure rechecked and up to 90/45. He was given soma prior but the low blood pressure happened a few minutes after given. Patient is sitting up in the chair and comfortable. Ibarra is patent putting out yellow urine. Original Note: Assess- patient is alert and oriented but groggy this morning. He was last given pain medication around 0600. Dressing to back is bulky and dri. He has worked with physical therapy and tolerates well. He knows that he is in the hospital and is sitting up in the chair dozing.
[2023-01-12 12:00] VITALS: BP 79/42; PULSE 100; RESP 18; O2SAT 92
[2023-01-12] MEDS: ACETAMINOPHEN 325 MG TABLET 650 MG PO ×2 (12:11→23:49)
--- NOTE | 2023-01-12 12:48 | PM.PNPO.1 ---
Subjective Subjective Date Patient Seen: 01/12/23 Time Patient Seen: 07:20 Interval history: Patient is sitting up in his chair this morning. He states he is having severe pain to the lower back and that pain medication is not touching the pain. He reports that he has worked with physical therapy but it didn't go well because he was in pain. Denies numbness and tingling to the distal extremities. Denies fever, chills. Exam Vital Signs (past 8 hours): - 01/12/23 06:00 01/12/23 08:00 Temperature 99.0 F Pulse Rate 102 H 98 H Respiratory Rate 19 18 Blood Pressure 136/78 113/70 Pulse Oximetry 93 98 Oxygen Flow Rate 0 Oxygen Delivery Method Nasal Cannula Oxygen Flow Rate 0 Narrative Exam Narrative: Pleasant 77-year-old male. Somnolent, easily arousable. Low back dressing intact, quarter sized dried blood spots on bilateral dressings. Strength and sensation intact to bilateral lower extremities. 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 posterior isntrumentation-Robot Rocco West MD Postoperative day: 2 Postoperative status: marginal pain control Postoperative status narrative: patient has marginal pain control following two-level TLIF, postop day 2 Postoperative plan: routine post-op care Postoperative plan narrative: Continue multimodal pain regimen, added methocarbamol today. Continue working with physical therapy. Change dressing as needed. Disposition pending pain control and participation with physical therapy. Quality VTE Deep Vein Thrombosis/Pulmonary Embolism Present on Admission: No
[2023-01-12] MEDS: methocarbamoL 500 MG TABLET PO ×2 (13:27→23:49)
[2023-01-12] MEDS: SODIUM CHLORIDE 0.9% 1,000 ML 1000 ML IV (13:49)
--- NOTE | 2023-01-12 15:00 | PT.IPTN ---
Current Diagnoses Spondylolisthesis, lumbar region (01/10/23) Postlaminectomy syndrome, not elsewhere classified (01/10/23) Surgery Performed Operation Date: 01/10/23 07:45 Actual Procedures p L4-5, L5-S1 TLIF w. posterior isntrumentation-Robot - Rocco West MD Physical Therapy Treatment Note M2 PT-IP Current Condition Start: 01/10/23 15:40 Freq: NEEDED Status: Active Protocol: Document 01/10/23 14:45 AB (Rec: 01/10/23 15:58 AB [id number]) Physical Therapy Current Condition Current Condition Evaluation Date 01/10/23 Treatment Diagnosis s/p L4-5, L5S1 TLIF; difficulty in walking Onset Date 01/10/23 M3 PT-IP Subjective Start: 01/10/23 15:40 Freq: NEEDED Status: Active Protocol: Document 01/12/23 15:30 TS (Rec: 01/12/23 15:53 TS [id number]) Subjective Physical Therapy Visit Type Type Treatment Note Visit Start Time 15:00 Visit Stop Time 15:28 Total Visit Minutes 28 Number of DRAPERY HAND Visits 3 Physical Therapy Visit Comments Patient Comments Pt found resting in chair, spouse in room, pt reports having burning pain in R hip, is agreeable to PT. Therapy Pain Assessment Pain When Pain Assessed At Rest Pain Present Pain Present Pain Reported Location back Intensity 7 Scale Used Numeric (0 - 10) Description Burning,With Movement Pain Behaviors Facial Grimacing,Holding Area, Moaning,Restlessness,Wincing Pain Management Techniques Modification of Treatment,Re- positioning,Timing of Activity with Medications M4 PT-IP Mobility and Gait Start: 01/10/23 15:40 Freq: NEEDED Status: Active Protocol: Document 01/12/23 15:30 TS (Rec: 01/12/23 15:53 TS [id number]) PT-Transfer Assessment Sit to and From Stand Sit to and from Stand Moderate Assistance,1 Person Assistance,Use of Upper Extremities Equipment Transfer Assistive Device Gait Belt,Front Wheeled Walker Orthotic/Prosthetic Devices or Brace: No Comments Mobility Comments Pt found resting in chair, BP 114/36, on 1L of o2 @95%. Sit to stand from chair w/FWW ModA for retrolean. BP taken in standing 116/43, pt denied any dizziness or lightheadedness and thermal changes. He ambulated in room ~30' w/FWW, pt has slow step to gait, c/o increasing burning pain in R hip. He performed steps x3 on step stool with B rail support and CGA, pt had no buckling or LOB. Pt was left back in chair with call light nearby, spouse in room. Gait Assessment Gait Gait Assistance Required: Contact Guard Assist,1 Person Assist Distance (Feet) 30 Able to Maintain Weight Bearing Status Yes During Gait Assistive Devices Assistive Device Gait Belt,Front Wheeled Walker Orthotic/Prosthetic Devices or Brace: No Gait Deviations General Gait Pattern Ataxic,Decreased Stride Length ,Decreased Feet Clearance,Wide Based Gait Factors Limiting Gait Function Factors Limiting Gait Function Decreased Activity Tolerance, Decreased Strength,Difficulty Following Directions,Limited Range of Motion,Pain,Poor Balance,Poor Safety Awareness, Respiratory Distress Comments Gait Comments See mobility comments. Stair Climbing Assessment Evaluation Level of Assist On Stairs Contact Guard Assistance,1 Person Assistance Devices Stair Climbing Assistive Devices Left Railing,Right Railing Technique/Endurance Stair Climbing Direction Ascend and Descend Stair Climbing Technique Step to Step Number of Steps Climbed 3 Comments Stair Climbing Comments See mobility comments. PT-Balance Assessment Sitting Balance and Reactions Static Sitting Balance Ability Normal Dynamic Sitting Balance Ability Good Standing Balance and Reactions Static Standing Balance Ability Good Dynamic Standing Balance Ability Fair Device Used FWW M5 PT-IP Objective Assessments Start: 01/10/23 15:40 Freq: NEEDED Status: Active Protocol: Document 01/10/23 14:45 AB (Rec: 01/10/23 15:58 AB [id number]) Orientation Orientation/Cognition Level of Alertness Alert Orientation Name,Situation Safety Awareness Decreased Safety Awareness Memory Description Short Term Impaired Gross Range of Motion Lower Extremity ROM Assessment Within Functional Limits Strength Comments Strength Comments RLE: 4-/5 LLE: 4/5 Sensation Assessment Sensation Gross Sensation WNL Muscle Tone Muscle Tone WNL Yes M6 PT-IP Treatment Start: 01/10/23 15:40 Freq: NEEDED Status: Active Protocol: Document 01/12/23 15:30 TS (Rec: 01/12/23 15:53 TS [id number]) Physical Therapy Treatment Education Education Provided Precautions,Weight Bearing Status,Post-Op Packet,Safety M7 PT-IP Assessment and Plan Start: 01/10/23 15:40 Freq: NEEDED Status: Active Protocol: Document 01/12/23 15:30 TS (Rec: 01/12/23 15:53 TS [id number]) PT Summary Assessment and Plan Potential Rehabilitation Potential Good Summary Impairments Pain,ROM,Strength,Balance, Coordination,Sensation,Tone, Cognition,Bed Mobility, Transfers,Gait,Activity Tolerance Progress Towards Goals Slow Progress due to Pain,Slow Progress due to Medical Issues,Slow Progress due to Activity Tolerance Assessment Summary Pt continues to make slow progress with his mobility this session. Pt had bolus prior to session with PT due to low BP. BP was 114/36 in sitting and 116/43 in standing , pt denied any dizziness or lightheadedness and thermal changes. He is currently on 1L of o2 at 95%, oxygen remained on pt throughout session. He continues to require ModA for sit to stands from chair due to low surface and decreased strength in LEs, he has some retroleaning coming into standing. He ambulated ~30'CGA w/FWW, pt tolerated gait well with no dizziness or lightheadedness. He performed steps x3 CGA with B handrail assist, pt had no buckling or LOB. PT continues to recommend home w/ assist when medically stable. Goals Bed Mobility Goal Standby Assistance Transfer Goal Standby Assistance,Front Wheeled Walker Gait Goal Standby Assistance,Front Wheel Walker Gait Distance 200 Other Goals improve bed mobility, transfers and ambulation using FWW 300ft mod I up/down 3 steps 1 rail SBA Days to Meet Goals 5 Frequency of Treatment Frequency Of Treatment Twice a Day Treatment Plan Physical Therapy Treatment Plan Bed Mobility Training,Transfer Training,Gait Training, Therapeutic Exercise,Balance Retraining,Post Op Education, Discharge Planning,Hot or Cold Pack,Neuromuscular Re-ed, Coordination Retraining,Manual Therapy Precautions Lumbar Precautions Log Roll,No Twisting,Limit Bending,Lifting Restriction of 10 lbs,Gait Belt above Incisional Area Recommendations To Nursing Amount of Assist Needed 1 Person Assist Discharge Recommendations PT Discharge Recommendations Home with Assistance Other Discharge Recommendations Pt would like to go to SNF Transportation Needs at Discharge Private Vehicle
[2023-01-12 18:00] VITALS: BP 95/45
[2023-01-12 19:36] VITALS: BP 108/47; PULSE 98; RESP 18; TEMP 37.3; O2SAT 94
[2023-01-13] VITALS: BP 138/72; PULSE 113; RESP 17; TEMP 37.5; O2SAT 95
[2023-01-13 06:00] VITALS: BP 144/70; PULSE 103; RESP 18; TEMP 36.9; O2SAT 93
[2023-01-13] MEDS: polyethylene glycoL 3350 17 GM POWD.PACK PO (07:39)
[2023-01-13] MEDS: OXYCODONE IR 5 MG TABLET PO (07:39)
[2023-01-13] MEDS: methocarbamoL 500 MG TABLET PO (07:39)
[2023-01-13] MEDS: ACETAMINOPHEN 325 MG TABLET 650 MG PO (07:39)
[2023-01-13 08:29] VITALS: BP 98/50; PULSE 108; RESP 16; TEMP 36.7; O2SAT 91
[2023-01-13] MEDS: DOCUSATE 100 MG CAPSULE PO (09:21)
[2023-01-13] MEDS: ATORVASTATIN 20 MG TABLET 40 MG PO (09:21)
[2023-01-13 09:23] VITALS: BP 91/58
[2023-01-13] MEDS: MAGNESIUM HYDROXIDE 30 ML UDC PO (09:23)
--- NOTE | 2023-01-13 10:27 | PM.DS.1 ---
History of Present Illness History of Present Illness Date Patient Seen: 01/13/23 Chief complaint: TLIF Narrative: Patient is sitting up comfortably in chair this morning. He states his pain is much better today and is well controlled with medication. He states physical therapy has gone well and he has no reservations about going home. Denies numbness and tingling to the distal extremities, denies nausea and vomiting. Discharge Providers Provider Date of admission: 01/10/23 06:25 Discharge Date: 01/13/23 Primary care physician: Sarika Del Toro MD Consults: 01/10/23 12:43 Consult to Occupational Therapy Evaluate & Treat Comment: Physician Instructions: Evaluate and treat Consult to Physical Therapy Evaluate & Treat Comment: Physician Instructions: Evaluate and Treat Discharge provider: Rhoda Boles PA-C Summary Hospital Course Discharge Diagnosis: Status post 1 level TLIF Hospital Course: Operative Date/Time/Diagnoses Date of procedure: 01/10/23 Time of procedure: 07:40 Pre-op diagnosis: 1. Lumbar post laminectomy syndrome. 2. Lumbar spinal stenosis with radiculopathy Post-op diagnosis: same Procedure & Clinicians Procedure: ?1. L4-5, L5-S1 Postero-lateral and posterior interbody fusion 2. L4-5, L5-S1 interbody cage placement. 3. L4-5, L5-S1 decompressive laminectomy with bilateral facetecomies 4. L4-5, L5-S1 Posterior segmental instrumentation 5. [place] of bone marrow from iliac crest 6. Utilization of microsurgical technique and operating microscope 7. Utilization of robotic assisted navigation Same procedure as scheduled: Yes Indications: Patient has been having chronic back pain and worsening lumbar radiculopathy. Patient failed multiple conservative management with worsening pain weakness and numbness in his lower extremity.? Patient has been having difficulty performing activity of daily living.? After discussing risks benefits of treatment options, patient elected proceed with surgery. Surgeon: Rocco West Addictions Counselor Assistant: Shi Coker Click Yes if Unassisted: No Anesthesia Type: General Operative Notes Closure Type: primary Specimen(s): none sent Prosthetic devices, grafts, tissues, transplants, or devices: Globus CREO MIS screws, Rise cages Applied: catheter Estimated Blood Loss (mL): 100 Blood products transfused: none Status at Discharge Cognitive/behavioral status at discharge: oriented Functional status at discharge: uses cane/walker Overall status at discharge: patient is progressing back to baseline Exam Vital Signs (past 8 hours): - 01/13/23 06:00 01/13/23 08:29 01/13/23 09:23 Temperature 98.4 F 98.1 F Pulse Rate 103 H 108 H Respiratory Rate 18 16 Blood Pressure 144/70 H 98/50 L 91/58 L Pulse Oximetry 93 91 Oxygen Flow Rate 0 0 Oxygen Delivery Method Nasal Cannula Oxygen Flow Rate 0 Narrative Exam Narrative: Pleasant 69-year-old male. Awake, alert, and oriented. Intraoperative lumbar dressing intact with some dried blood. Strength and sensation intact to bilateral lower extremities. Bilateral calves soft, compressible, nontender with no palpable cords or masses. Objective Labs 01/11/23 05:39 PFSH Medical History Carpal tunnel syndrome Diaphragm paralysis Family history of dyslipidemia Family history of GERD History of arthritis History of BPH History of COPD History of hypertension History of low back pain History of muscle spasm History of obesity History of orthopnea Surgical History H/O rotator cuff surgery S/P cervical spinal fusion S/P plication of diaphragm Status post left partial knee replacement (~2007) Status post right partial knee replacement (~2014) Social History household members: spouse Smoking Status: Former smoker alcohol intake: current Discharge Assessment & Plan Assessment and Plan Assessment: Patient is improving following TLIF, now postop day 3. Plan of Treatment: Continue physical therapy and spine precautions. Continue multimodal pain regimen as needed. Follow up with Orthopedics 2 weeks after surgery. Discharge Plan Discharge Plan Patient Disposition: Home Discharge orders & Medications Prescriptions: New acetaminophen 325 mg Tablet 650 mg PO Q6H PRN (Reason: Fever/Mild Pain (1-3)) Qty: 60 0RF oxycodone 5 mg Tablet 5 mg PO Q4HR PRN (Reason: Pain, Moderate (4-6)) Qty: 40 0RF hydroxyzine pamoate 25 mg Capsule 25 mg PO Q4HR PRN (Reason: Nausea And Vomiting) Qty: 20 0RF Continued losartan 50 MG tablet 50 mg PO QDAY Qty: 0 atorvastatin 40 MG tablet 40 mg PO Q DAY Qty: 0 Discontinued ibuprofen [Advil] 200 MG tablet 400 mg PO PRN PRN (Reason: pain) Qty: 0 Follow up/Referrals: Sarika Del Toro MD [Primary Care Provider] - Rocco West MD [Physician] - As previously scheduled (Follow up with Dr West on 01/23/2023 @ 2:30 pm at [facility] office in [place].) Diet/Activity/Treatments Diet: Diet as Tolerated Activity: No deep bending or twisting at the waist. No lifting more than 10 pounds. Cold/Heat Therapy: Heating pad to low back as needed for pain. Skin/Wound/Dressing Care Report to your healthcare provider any signs of infection, such as:: chills, fever, night sweats, unusual drainage and unusual redness Dressing: May shower. Keep dressing as dry as possible. If dressing becomes wet or dirty, remove and replace with clean, dry gauze. No bathing or otherwise soaking incisions. Do not apply any creams, lotions, or ointments to incisions. Visit Report/Discharge Packet Instructions: DI for Prescription Opioid Use, DI for Transforaminal Lumbar Interbody Fusion Stand Alone Forms: Patient Portal/API, Stroke Signs & Symptoms, Surgery Discharge Discharge Data Primary Care Provider: Sarika Del Toro Quality VTE Deep Vein Thrombosis/Pulmonary Embolism Present on Admission: No
--- NOTE | 2023-01-13 11:01 | CM.DPNOTE ---
DC Note Patient is discharging home w/spouse today, outpatient follow up Patient cleared by therapies for this plan. No barriers identified to safe return home w/family to assist as needed JW
[2023-01-13 11:20] VITALS: BP 112/58; PULSE 95
== END 2023-01-13 12:40 | disposition home or self-care (01) | DRG 455 ==
PROVIDERS: Physician Assistant Medical; Admitting Provider Orthopaedic Surgery Orthopaedic Surgery of the Spine; Family Provider Student in an Organized Health Care Education/Training Program; PCP Student in an Organized Health Care Education/Training Program; Referring Provider Orthopaedic Surgery Orthopaedic Surgery of the Spine; Visit Provider Orthopaedic Surgery Orthopaedic Surgery of the Spine
PROC: 01NB0ZZ Release Lumbar Nerve, Open Approach (ICD-10-PCS; principal; 2023-01-10 07:45)
DX: M96.1 Postlaminectomy syndrome, not elsewhere classified (principal); M48.061 Spinal stenosis, lumbar region without neurogenic claudication; M43.17 Spondylolisthesis, lumbosacral region; M48.07 Spinal stenosis, lumbosacral region; J44.9 Chronic obstructive pulmonary disease, unspecified; K21.9 Gastro-esophageal reflux disease without esophagitis; Y83.8 Other surgical procedures as the cause of abnormal reaction of the patient, or of later complication, without mention of misadventure at the time of the procedure; M54.17 Radiculopathy, lumbosacral region; Z96.653 Presence of artificial knee joint, bilateral; Z87.891 Personal history of nicotine dependence
CPT/HCPCS: 36415; 72100; 76000; 85014; 85018; 85651; 97116; 97162; 97165; 97530; C1713; C1831; C9290; J0171; J0330; J0690; J1170; J2405; J2704; J3010

== ENCOUNTER → 2023-10-02 11:12 | Outpatient (CLI) | payer OTHER, SELFPAY ==
[2023-01-10 12:37] VITALS: BMI 34.4
== END ==
PROVIDERS: Family Provider Student in an Organized Health Care Education/Training Program; PCP Student in an Organized Health Care Education/Training Program; Referring Provider Internal Medicine; Visit Provider Internal Medicine
DX: J98.6 Disorders of diaphragm (principal); F17.210 Nicotine dependence, cigarettes, uncomplicated; R94.2 Abnormal results of pulmonary function studies
CPT/HCPCS: 94060; 94618; 94726; 94729